=== PATIENT | male | born 1960 | race Caucasian/White ===

== ENCOUNTER 2017-03-22 23:17 | Emergency (ER) | payer OTHER ==
[~2017-03-22] VITALS: Ht 180.3 cm; Wt 103.0 kg
[2017-03-23 00:01] VITALS: BP 143/86
== END 2017-03-23 00:05 | disposition home or self-care (01) ==
LOC: ED 23:59
DX: K08.89 Other specified disorders of teeth and supporting structures (principal)
CPT/HCPCS: 99283

== ENCOUNTER 2017-11-24 07:11 | Emergency (ER) | payer OTHER ==
[~2017-11-24] VITALS: Ht 180.3 cm; Wt 103.0 kg
[2017-11-24 07:19] VITALS: BP 137/84
[2017-11-24] MEDS ORDERED: ALBU0.63 NEB (07:41)
[2017-11-24] MEDS ORDERED: DIPH,PERTUSS(ACELL),TET VAC/PF 0.5 ML IM-VACC ONE ×2 (08:09→08:30)
== END 2017-11-24 08:48 | disposition home or self-care (01) ==
LOC: ED 08:30
DX: S00.33XA Contusion of nose, initial encounter (principal); S00.11XA Contusion of right eyelid and periocular area, initial encounter; S00.83XA Contusion of other part of head, initial encounter; X58.XXXA Exposure to other specified factors, initial encounter; Y93.89 Activity, other specified; Y99.8 Other external cause status; Y92.89 Other specified places as the place of occurrence of the external cause; R51 Headache
CPT/HCPCS: 70486; 90471; 90715

== ENCOUNTER 2018-01-24 02:10 | Emergency (ER) | payer OTHER ==
[~2018-01-24] VITALS: Ht 180.3 cm; Wt 100.5 kg
[~2018-01-24 02:10] MED LIST: ALBU0.63 NEB
[2018-01-24 02:13] VITALS: BP 135/78
[2018-01-24] MEDS ORDERED: LIDOCAINE-MPF 1%, 5ML INFIL ONE (03:00)
[2018-01-24] MEDS ORDERED: IBUPROFEN 200 MG TABLET PO ONE (03:00)
[2018-01-24] MEDS ORDERED: CEPHALEXIN 500 MG CAPSULE PO ONE (03:00)
[2018-01-24] MEDS ORDERED: SULFAMETH./TRIMETHOPRIM DS 800MG/160MG TABLET PO ONE (03:00)
[2018-01-24] MEDS ORDERED: CEPHALEXIN 500 MG CAPSULE ONE (03:01)
[2018-01-24] MEDS ORDERED: IBUPROFEN 600 MG TABLET ONE (03:01)
[2018-01-24] MEDS ORDERED: SULFAMETH./TRIMETHOPRIM DS 800MG/160MG TABLET ONE (03:01)
== END 2018-01-24 03:24 | disposition home or self-care (01) ==
LOC: ED 03:19
DX: M71.162 Other infective bursitis, left knee (principal); L03.116 Cellulitis of left lower limb
CPT/HCPCS: 10022; 87070; 87077; 87186; 87205; 99284